=== PATIENT | male | born 1960 | race Caucasian/White ===

== ENCOUNTER 2021-02-23 01:07 | Inpatient (IN) ==
[2021-02-23 01:23] VITALS: BMI 25.6
[2021-02-23] MEDS ORDERED: NS 1,000 ML IV 1,000 ML IV ONE (01:27)
[2021-02-23] MEDS ORDERED: NS 1,000 ML IV 1,000 ML ONE ×2 (01:40→06:03)
--- NOTE | 2021-02-23 01:46 | DR.URIAD ---
HPI Time Seen Time Seen by Provider: 02/23/21 01:45 EST PCP Primary Care Physician: JD OROZCO HPI Comment HPI Comment: Pt says he feels fine and doesn't know why he came and looks at who says she noted confusion after pt returned from work trip to [place] on morning; tested positive for Covid on Wednesday; worsening confusion, cough with sob and fatigue and malaise/myalgia over past two days so she brought him in; he has been coughing since getting home and is required by job to have covid test done; no tx to date; denies cp, palpitations, abd pain, n/v/d; appears off balance at times and has had slurred speech per ; denies proble ms swallowing and wants water he is dm with ef 25% Complaint Chief Complaint:: PT AMBULATORY IN ED AND UNABLE TO ANSWER QUESTIONS. 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 COVID-19 Coronavirus risk:travel/contact w/high risk person: Yes Has patient experienced Coronavirus symptoms: Yes Coronavirus symptoms experienced: Fever, Coughing and Shortness of Breath Source History Provided: Patient and Family Member Mode of Arrival Mode of Arrival: Ambulatory Timing Onset of Chief Complaint: 02/20/21 PMH PMH Past Medical History: Yes Past Medical History: Diabetes and Hypertension Past Medical History Comment: STATES PT HAS 25% HEART FUNCTION Past Surgical History: Yes Surgical History: CABG/Valve Surgery Family History History of Family Medical Conditions: Yes Family Medical History: Cancer, [place] and Hypertension Social History Type of Tobacco Use: None Alcohol Use: None Do you use any recreational Drugs:: No Lives With: Spouse Lives Where: Home Travel Risk Coronavirus risk:travel/contact w/high risk person: Yes Has patient experienced Coronavirus symptoms: Yes Coronavirus symptoms experienced: Fever, Coughing and Shortness of Breath Infectious screening Have you traveled outside the country in the last 6 months?: No Isolation: Droplet ROS Review of Systems Eyes: No Symptoms Reported ENTM: No Symptoms Reported Cardiovascular: No Symptoms Reported Gastrointestinal/Abdominal: No Symptoms Reported Genitourinary: No Symptoms Reported Neurological: No Symptoms Reported Musculoskeletal: No Symptoms Reported Integumentary: No Symptoms Reported Hematologic/Lymphatic: No Symptoms Reported Endocrine: No Symptoms Reported PE Vital Signs Vitals: Temperature 99.4 F Pulse Rate 75 Respiratory Rate 20 Blood Pressure 140/78 O2 Sat by Pulse Oximetry 95 General Limitations: No Limitations General Appearance: Alert and In No Apparent Distress Head Head Exam: Normal Inspection Eyes Eye exam: Normal Appearance ENT ENT Exam: Normal Exam External Ear Exam: Normal External Inspection TM/Canal Exam: Bilateral: Normal Nose Exam: Normal Nose Exam Nasal Speculum Exam: Bilateral: Normal Mouth Exam: Normal Inspection Throat Exam: Normal Inspection Neck Neck Exam: Normal Inspection Chest Chest Inspection: Normal Inspection Respiratory Respiratory Exam: Normal Lung Sounds Bilat Respiratory Exam: Bilateral: Clear to Auscultation Cardiovascular Cardiovascular Exam: Regular Rate and Normal Rhythm Abdominal Exam Abdominal Exam: Normal Inspection, Normal Bowel Sounds and Soft Extremeties Extremities Exam: Normal Inspection Back Back Exam: Normal Inspection Neurologic Neurological Exam: Alert and Other (obvious confusion w/answering questions; reports it's Wednesday morning in 2000, 08/21 UE/LE strength, incoordination finger to nose on lt) Psychiatric Psychiatric Exam: Flat Affect Skin Skin Exam: Warm, Dry, Intact and Normal Color MDM Differential Diagnosis Differential Diagnosis: Pneumonia and URI COURSE Reevaluation 1st: Unchanged 2nd: Unchanged Consultation Call Returned: 05:10 (Dr Miller accepts admission) ROR Labs Reviewed Laboratory Results Reviewed?: Yes Result Diagrams: 02/23/21 01:36 EST 02/23/21 01:36 EST Laboratory: WBC 6.1 X10^3/uL (3.6-10.0) 02/23/21 01:36 EST RBC 5.37 X10^6/uL (4.7-6.0) 02/23/21 01:36 EST Hgb 17.3 g/dL (13.5-18.0) 02/23/21 01:36 EST Hct 49.8 % (42.0-54.0) 02/23/21 01:36 EST MCV 92.9 fL (80.0-100.0) 02/23/21 01:36 EST MCH 32.2 pg (27.0-34.0) 02/23/21 01:36 EST MCHC 34.7 g/dL (33.0-35.0) 02/23/21 01:36 EST RDW 13.1 % (11.6-16.5) 02/23/21 01:36 EST Plt Count 77 X10^3/uL (150.0-450.0) L 02/23/21 01:36 EST MPV 10.3 fL (7.4-11.0) 02/23/21 01:36 EST Neut % (Auto) 69.8 % (42.0-75.0) 02/23/21 01:36 EST Lymph % (Auto) 22.4 % (21.0-51.0) 02/23/21 01:36 EST Sibley % (Auto) 7.1 % (0.0-13.0) 02/23/21 01:36 EST Eos % (Auto) 0.2 % (0.9-2.9) L 02/23/21 01:36 EST Baso % (Auto) 0.5 % (0.2-1.0) 02/23/21 01:36 EST Neut # (Auto) 4.3 x10^3/uL (2.2-4.8) 02/23/21 01:36 EST Lymph # (Auto) 1.4 X10^3/uL (1.3-2.9) 02/23/21 01:36 EST Sibley # (Auto) 0.4 x10^3/uL (0.3-0.8) 02/23/21 01:36 EST Eos # (Auto) 0.0 x10^3/uL (0.0-0.2) 02/23/21 01:36 EST Baso # (Auto) 0.0 X10^3/uL (0.0-0.1) 02/23/21 01:36 EST Absolute Nucleated RBC 0.1 /100WBC 02/23/21 01:36 EST D-Dimer 1.43 ug/ml (0.0-0.57) H* 02/23/21 01:55 EST Sample Site Rrad 02/23/21 01:53 EST ABG pH 7.520 (7.35-7.45) H 02/23/21 01:53 EST ABG pCO2 28.0 mmHg (35.0-45.0) L 02/23/21 01:53 EST ABG pO2 66.0 mmHg (80.0-100.0) L 02/23/21 01:53 EST ABG HCO3 22.9 mmol/L (22-26) 02/23/21 01:53 EST ABG O2 Saturation 95.0 % (90-100) 02/23/21 01:53 EST ABG Base Excess 1.0 mmol/L (-2.0-2.0) 02/23/21 01:53 EST Macho Test Pos 02/23/21 01:53 EST A-a Gradient 49.0 mmHg 02/23/21 01:53 EST FiO2 21.0 02/23/21 01:53 EST Blood Gas Comments Key well-mtf 02/23/21 01:53 EST Sodium 137 mmol/L (136-145) 02/23/21 01:36 EST Corrected Sodium 140 mmol/L (136-145) 02/23/21 01:36 EST Potassium 3.8 mmol/L (3.5-5.1) 02/23/21 01:36 EST Chloride 100 mmol/L (98-107) 02/23/21 01:36 EST Carbon Dioxide 26.8 mmol/L (21-32) 02/23/21 01:36 EST BUN 20 mg/dL (7-18) H 02/23/21 01:36 EST Creatinine 1.26 mg/dL (0.70-1.30) 02/23/21 01:36 EST Est GFR (MDRD) Af Amer > 60 (>60) 02/23/21 01:36 EST Est GFR (MDRD) Non-Af > 60 (>60) 02/23/21 01:36 EST Glucose 221 mg/dL (65-99) H 02/23/21 01:36 EST Lactic Acid 1.5 mmol/L (0.4-2.0) 02/23/21 03:50 Calcium 8.5 mg/dL (8.5-10.1) 02/23/21 01:36 EST Corrected Calcium 9.3 mg/dL (8.5-10.1) 02/23/21 01:36 EST Total Bilirubin 1.70 mg/dL (0.2-1.0) H 02/23/21 01:36 EST AST 50 Units/L (15-37) H 02/23/21 01:36 EST ALT 35 Units/L (12-78) 02/23/21 01:36 EST Alkaline Phosphatase 66 Units/L (46-116) 02/23/21 01:36 EST Creatine Kinase 318 Units/L (39-308) H 02/23/21 01:36 EST CK-MB (CK-2) 2.1 ng/mL (0-4.0) 02/23/21 01:36 EST CK/CKMB % Calc 0.7 % (<4) 02/23/21 01:36 EST Troponin I 0.18 ng/mL (0-1.5) 02/23/21 01:36 EST Total Protein 6.8 g/dL (6.4-8.2) 02/23/21 01:36 EST Albumin 3.0 g/dL (3.4-5.0) L 02/23/21 01:36 EST Globulin 3.8 g/dL (2.5-4.5) 02/23/21 01:36 EST Albumin/Globulin Ratio 0.8 Ratio (1.1-2.1) L 02/23/21 01:36 EST Other Results Comments: no evidence of cva; symptoms most likely d/t encephalopathy; admit, regenCov, oxygen prn and monitor closely XRAY XRAY Interpreted by: Radiologist X-ray Results: cxr: 1. Multifocal alveolar airspace disease is noted throughout the right mid and left lower lung zone. This may represent acute or chronic airspace disease. Follow-up to complete resolution may be obtained as clinically indicated. cta: - The above findings demonstrate COMMON CT imaging features of COVID-19 pneumonia. However, differential diagnosis should include, but is not limited to, influenza pneumonia, organizing pneumonia, or possible drug toxicity. Clinical correlation with laboratory viral testing may be obtained as clinically indicated. Reference: Johnson et al. Radiology. 2020 - Exam is limited due to motion. There is no evidence of a pulmonary embolism from the level of the main pulmonary artery to the vessels located most proximal to the segmental arteries. Distal emboli beyond these points can not be accurately assessed on this examination. Opioid Opioid Risk Tool Age (Emil box if 16-45): No History of Preadolescent Sexual Abuse: No Total: 0 Total Score Risk Category: Low Risk Copyright: Ad PRITCHARD predicting aberrant behaviors Diagnosis Discharge Problem: Community acquired bilateral lower lobe pneumonia, Acute confusion, COVID-19, Elevated d-dimer, Thrombocytopenia, Encephalopathy due to 2019-nCoV Instructions Forms: EUA Consent [facility] Patient Portal Social Distancing
[2021-02-23 01:55] LABS: ABG ALLEN TEST POS; ABG HCO3 22.9 mmol/L (22-26)
[2021-02-23 02:18] LABS: BASOPHILS % (AUTO) 0.5 % (0.2-1.0); EOSINOPHILS % (AUTO) 0.2 % (0.9-2.9); HEMATOCRIT 49.8 % (42.0-54.0); HEMOGLOBIN 17.3 g/dL (13.5-18.0); LYMPHOCYTES # (AUTO) 1.4 X10^3/uL (1.3-2.9); LYMPHOCYTES % (AUTO) 22.4 % (21.0-51.0); MEAN CORPUSCULAR HEMOGLOBIN 32.2 pg (27.0-34.0); MEAN CORPUSCULAR HGB CONC 34.7 g/dL (33.0-35.0); MEAN CORPUSCULAR VOLUME 92.9 fL (80.0-100.0); MEAN PLATELET VOLUME 10.3 fL (7.4-11.0); MONOCYTES # (AUTO) 0.4 x10^3/uL (0.3-0.8); MONOCYTES % (AUTO) 7.1 % (0.0-13.0); NEUTROPHILS # (AUTO) 4.3 x10^3/uL (2.2-4.8); NEUTROPHILS % (AUTO) 69.8 % (42.0-75.0); PLATELET COUNT 77 X10^3/uL (150.0-450.0); RED BLOOD COUNT 5.37 X10^6/uL (4.7-6.0); RED CELL DISTRIBUTION WIDTH 13.1 % (11.6-16.5); WHITE BLOOD COUNT 6.1 X10^3/uL (3.6-10.0)
[2021-02-23 02:27] LABS: ALANINE AMINOTRANSFERASE 35 Units/L (12-78); ALKALINE PHOSPHATASE 66 Units/L (46-116); ASPARTATE AMINO TRANSFERASE 50 Units/L (15-37); BLOOD UREA NITROGEN 20 mg/dL (7-18); CALCIUM 8.5 mg/dL (8.5-10.1); CARBON DIOXIDE 26.8 mmol/L (21-32); CHLORIDE 100 mmol/L (98-107); COR CA(FOR HYPOALB) 9.3 mg/dL (8.5-10.1); COR NA(FOR HYPERGLY) 140 mmol/L (136-145); CREATININE 1.26 mg/dL (0.70-1.30); SODIUM 137 mmol/L (136-145); TOTAL PROTEIN 6.8 g/dL (6.4-8.2); eGFR NON BLACK RACES > 60 (>60)
--- NOTE | 2021-02-23 02:27 | RAD ---
STUDY: FRONTAL VIEW CHESTCOMPARISON: NoneHISTORY: SOBFINDINGS:There is a single lead transvenous pacing wire without evidence of lead wire fractures. Status post midline sternotomyDiffuse multifocal alveolar airspace disease is seen throughout the right lung and left lower lung zone.The heart size is within normal limits.The mediastinum is unremarkable.There is no evidence of pleural effusion or gross pneumothorax.The trachea is midline.IMPRESSION:1. Multifocal alveolar airspace disease is noted throughout the right mid and left lower lung zone. This may represent acute or chronic airspace disease. Follow-up to complete resolution may be obtained as clinically indicated.Electronically signed by: Attila Oswald (Feb 23, 2021 02:25:00)
[2021-02-23] MEDS ORDERED: NS 100 ML IV 100 ML ONE ×2 (02:40→06:03)
[2021-02-23] MEDS ORDERED: ROCEPHIN 1 GRAM IV PREMIX 1 G/50 ML IV.SOLN. IV ONE ×2 (02:43→02:47)
[2021-02-23 02:45] LABS: CKMB % 0.7 % (<4); CREATINE KINASE MB 2.1 ng/mL (0-4.0); TROPONIN I 0.18 ng/mL (0-1.5)
--- NOTE | 2021-02-23 02:54 | CT ---
STUDY: CT HEAD WITHOUT IV CONTRASTCOMPARISON: NoneTECHNIQUE: axial images were acquired of the head without IV contrast. Coronal and sagittal images were provided. All images were reviewed in a variety of windows and levels.LIMITATIONS: Please note that CT has low sensitivity and accuracy for identifying acute infarction. In addition, there are portions of the brain that are affected by beam hardening artifact which further greatly limits identification of an acute infarct.RADIATION REDUCTION TECHNIQUE: Automated exposure control, Adjustment of the mA and/or kV according to patient size, or iterative reconstruction techniques were used.HISTORY: AMS, UNCOORDINATED, COVID-19FINDINGS: There is soft tissue material in the bilateral external ear canals most likely representing cerumen.There is no evidence of an acute intracranial bleed.There is no evidence of a mass or midline shift.There is no evidence of an extra-axial fluid collection.The nelson-white matter differentiation is within normal limits.The visualized bones are unremarkable.The visualized sinuses are clear.The mastoid air cells are well-aerated.IMPRESSION:THERE IS NO EVIDENCE OF AN ACUTE INTRACRANIAL BLEED Electronically signed by: Attila Oswald (Feb 23, 2021 02:50:20)
--- NOTE | 2021-02-23 04:34 | CT ---
STUDY: CTA CHEST WITH IV CONTRASTCOMPARISON: NoneTECHNIQUE: axial images were acquired of the chest with IV contrast for a CT angiogram. Coronal and sagittal images were provided. All images were reviewed in a variety of windows and levels. 3D 8 mm thick MIPS images were provided.RADIATION REDUCTION TECHNIQUE: Automated exposure control, Adjustment of the mA and/or kV according to patient size, or iterative reconstruction techniques were used. 8 mm thick axial MIPS images were provided.HISTORY: sob confusion, elevated d-dimerFINDINGS:CHEST:THYROID GLANDS: The thyroid gland is unremarkable.HEART AND VESSELS: The heart size is enlarged.There is no evidence of pericardial effusion. Thoracic aorta is normal size without evidence of an aneurysm or dissection.Main pulmonary artery size is within normal limits.Exam is limited due to bolus timing. There is no evidence of a pulmonary embolism from the level of the main pulmonary artery to the vessels located most proximal to the segmental arteries. Distal emboli beyond these points can not be accurately assessed on this examination. Transvenous pacing wires are noted.LYMPH NODES: There is no evidence of axillary, mediastinal, or hilar lymphadenopathy.AIRWAY: The trachea and mainstem bronchi are patent.No intraluminal lesions are seen.LUNGS: Diffuse ground-glass opacities are seen throughout the right and left lung involving the subpleural surface and major fissures. No pleural effusion or pneumothorax is seen.ESOPHAGUS: The esophagus is grossly unremarkable.BONES: The visualized bones demonstrate degenerative changes. There are no concerning lytic or blastic lesions identified.UPPER ABDOMINAL STRUCTURES: The visualized upper abdominal structures are unremarkable.IMPRESSSION:- The above findings demonstrate COMMON CT imaging features of COVID-19 pneumonia. However, differential diagnosis should include, but is not limited to, influenza pneumonia, organizing pneumonia, or possible drug toxicity. Clinical correlation with laboratory viral testing may be obtained as clinically indicated. Reference: Alex et al. Radiology. 2020- Exam is limited due to motion. There is no evidence of a pulmonary embolism from the level of the main pulmonary artery to the vessels located most proximal to the segmental arteries. Distal emboli beyond these points can not be accurately assessed on this examination. [email or web address] 04:32:10)
[2021-02-23] MEDS ORDERED: REGEN-COV VIAL 10 ML, DRUG FILTER EXTENSION SET * 1 EA in NS 100 ML IV 100 ML IV ONE ×2 (05:27)
[2021-02-23] MEDS ORDERED: PHARMACY CONSULT - LOVENOX XX SCH (06:00)
[2021-02-23] MEDS ORDERED: REGEN-COV VIAL ONE (06:03)
[2021-02-23] MEDS: NS 1,000 ML IV 1,000 ML IV SCH (06:08)
[2021-02-23] MEDS ORDERED: BROVANA ONE (07:56)
[2021-02-23] MEDS ORDERED: PULMICORT NEB TX 0.5 MG NEB ONE (07:56)
[2021-02-23] MEDS: PULMICORT NEB TX 0.5 MG NEB SCH ×2 (08:30→21:38)
[2021-02-23] MEDS: BROVANA IN SCH ×2 (08:30→21:38)
[2021-02-23] MEDS ORDERED: SOLU-Medrol 125 MG VIAL IVP SCH (09:00)
[2021-02-23] MEDS: PHARMACY CONSULT - IVERMECTIN XX SCH (09:21)
[2021-02-23] MEDS: ASCORBIC ACID INJ MULTI-DOSE VIAL 1,500 MG in NS 100 ML IV 100 ML IV SCH ×3 (09:54→20:14)
[2021-02-23] MEDS: PEPCID TAB 40 MG PO SCH ×2 (09:54→20:13)
[2021-02-23] MEDS: CYTOTEC PO SCH ×4 (09:54→20:13)
[2021-02-23] MEDS: IVERMECTIN PO SCH (09:54)
[2021-02-23] MEDS: FLUVOXAMINE MALEATE PO SCH ×2 (09:55→20:11)
[2021-02-23] MEDS: LIPITOR TAB 80 MG PO SCH (09:55)
[2021-02-23] MEDS: ELIQUIS PO SCH ×2 (09:55→20:12)
[2021-02-23] MEDS: SOLU-Medrol 40 MG VIAL IVP SCH ×3 (09:55→20:14)
[2021-02-23] MEDS: ZINC SULFATE PO SCH ×2 (09:55→20:12)
[2021-02-23] MEDS: PROTONIX INJ 40 MG VIAL IVP SCH ×2 (09:55→20:14)
[2021-02-23] MEDS: THIAMINE HCL INJ IVP SCH ×2 (09:55→20:14)
[2021-02-23] MEDS ORDERED: HumuLIN R ONE (12:40)
[2021-02-23] MEDS: HumuLIN R SUBCUT PRN ×3 (12:49→20:15)
[2021-02-23] MEDS ORDERED: MELATONIN ONE (19:56)
[2021-02-23] MEDS: SNACK - Diabetic Appropriate PO SCH (20:00)
[2021-02-23] MEDS: MELATONIN PO SCH (20:11)
[2021-02-23] MEDS: PERIACTIN TAB 4 MG PO PRN (20:12)
[2021-02-24] MEDS: SOLU-Medrol 40 MG VIAL IVP SCH ×4 (03:15→20:03)
[2021-02-24] MEDS: ASCORBIC ACID INJ MULTI-DOSE VIAL 1,500 MG in NS 100 ML IV 100 ML IV SCH ×4 (03:15→20:03)
[2021-02-24 05:10] LABS: BASOPHILS % (AUTO) 0.1 % (0.2-1.0); HEMATOCRIT 45.8 % (42.0-54.0); HEMOGLOBIN 15.8 g/dL (13.5-18.0); LYMPHOCYTES # (AUTO) 0.8 X10^3/uL (1.3-2.9); LYMPHOCYTES % (AUTO) 15.3 % (21.0-51.0); MEAN CORPUSCULAR HGB CONC 34.5 g/dL (33.0-35.0); MEAN CORPUSCULAR VOLUME 92.8 fL (80.0-100.0); MEAN PLATELET VOLUME 9.9 fL (7.4-11.0); MONOCYTES # (AUTO) 0.2 x10^3/uL (0.3-0.8); MONOCYTES % (AUTO) 4.5 % (0.0-13.0); NEUTROPHILS # (AUTO) 4.2 x10^3/uL (2.2-4.8); NEUTROPHILS % (AUTO) 80.1 % (42.0-75.0); PLATELET COUNT 77 X10^3/uL (150.0-450.0); RED BLOOD COUNT 4.94 X10^6/uL (4.7-6.0); RED CELL DISTRIBUTION WIDTH 12.9 % (11.6-16.5); WHITE BLOOD COUNT 5.3 X10^3/uL (3.6-10.0)
[2021-02-24 05:23] LABS: ALANINE AMINOTRANSFERASE 29 Units/L (12-78); ALBUMIN 2.3 g/dL (3.4-5.0); ALKALINE PHOSPHATASE 57 Units/L (46-116); ASPARTATE AMINO TRANSFERASE 43 Units/L (15-37); BLOOD UREA NITROGEN 24 mg/dL (7-18); CARBON DIOXIDE 22.2 mmol/L (21-32); CHLORIDE 105 mmol/L (98-107); COR CA(FOR HYPOALB) 9.4 mg/dL (8.5-10.1); COR NA(FOR HYPERGLY) 142 mmol/L (136-145); CREATININE 0.94 mg/dL (0.70-1.30); SODIUM 138 mmol/L (136-145); TOTAL PROTEIN 5.9 g/dL (6.4-8.2); eGFR NON BLACK RACES > 60 (>60)
[2021-02-24] MEDS: PHARMACY CONSULT - IVERMECTIN XX SCH (06:05)
[2021-02-24] MEDS: NS 1,000 ML IV 1,000 ML IV SCH (06:05)
[2021-02-24] MEDS: HumuLIN R SUBCUT PRN ×4 (06:06→20:06)
[2021-02-24] MEDS: PULMICORT NEB TX 0.5 MG NEB SCH ×2 (08:05→20:15)
[2021-02-24] MEDS: BROVANA IN SCH ×2 (08:05→20:15)
[2021-02-24] MEDS ORDERED: GLUCOPHAGE ONE ×2 (08:55→19:35)
[2021-02-24] MEDS: ACTOS PO SCH (09:08)
[2021-02-24] MEDS: THIAMINE HCL INJ IVP SCH ×2 (09:10→20:05)
[2021-02-24] MEDS: GLUCOPHAGE PO SCH ×2 (09:10→20:04)
[2021-02-24] MEDS: IVERMECTIN PO SCH (09:10)
[2021-02-24] MEDS: ELIQUIS PO SCH ×2 (09:10→20:04)
[2021-02-24] MEDS: PROTONIX INJ 40 MG VIAL IVP SCH ×2 (09:11→20:04)
[2021-02-24] MEDS: ZINC SULFATE PO SCH ×2 (09:11→20:05)
[2021-02-24] MEDS: LIPITOR TAB 80 MG PO SCH (09:12)
[2021-02-24] MEDS: INVOKANA PO SCH (09:12)
[2021-02-24] MEDS: PEPCID TAB 40 MG PO SCH ×2 (09:12→20:05)
[2021-02-24] MEDS: CYTOTEC PO SCH ×4 (11:55→20:04)
[2021-02-24] MEDS: FLUVOXAMINE MALEATE PO SCH ×2 (11:56→20:04)
[2021-02-24] MEDS: SNACK - Diabetic Appropriate PO SCH (20:00)
[2021-02-24] MEDS: MELATONIN PO SCH (20:05)
[2021-02-24] MEDS: PERIACTIN TAB 4 MG PO PRN (20:05)
[2021-02-25] MEDS: SOLU-Medrol 40 MG VIAL IVP SCH ×3 (03:10→14:53)
[2021-02-25] MEDS: ASCORBIC ACID INJ MULTI-DOSE VIAL 1,500 MG in NS 100 ML IV 100 ML IV SCH ×3 (03:10→14:53)
[2021-02-25 05:24] LABS: BASOPHILS % (AUTO) 0.1 % (0.2-1.0); HEMATOCRIT 44.9 % (42.0-54.0); HEMOGLOBIN 15.5 g/dL (13.5-18.0); LYMPHOCYTES # (AUTO) 0.9 X10^3/uL (1.3-2.9); LYMPHOCYTES % (AUTO) 8.1 % (21.0-51.0); MEAN CORPUSCULAR HEMOGLOBIN 31.9 pg (27.0-34.0); MEAN CORPUSCULAR HGB CONC 34.5 g/dL (33.0-35.0); MEAN CORPUSCULAR VOLUME 92.6 fL (80.0-100.0); MEAN PLATELET VOLUME 10.7 fL (7.4-11.0); MONOCYTES # (AUTO) 0.4 x10^3/uL (0.3-0.8); MONOCYTES % (AUTO) 4.1 % (0.0-13.0); NEUTROPHILS # (AUTO) 9.2 x10^3/uL (2.2-4.8); NEUTROPHILS % (AUTO) 87.7 % (42.0-75.0); PLATELET COUNT 102 X10^3/uL (150.0-450.0); RED BLOOD COUNT 4.85 X10^6/uL (4.7-6.0); RED CELL DISTRIBUTION WIDTH 13.2 % (11.6-16.5); WHITE BLOOD COUNT 10.5 X10^3/uL (3.6-10.0)
[2021-02-25 05:36] LABS: ALANINE AMINOTRANSFERASE 27 Units/L (12-78); ALBUMIN 2.2 g/dL (3.4-5.0); ALKALINE PHOSPHATASE 52 Units/L (46-116); ASPARTATE AMINO TRANSFERASE 37 Units/L (15-37); BLOOD UREA NITROGEN 30 mg/dL (7-18); CALCIUM 7.9 mg/dL (8.5-10.1); CARBON DIOXIDE 21.4 mmol/L (21-32); CHLORIDE 108 mmol/L (98-107); COR CA(FOR HYPOALB) 9.3 mg/dL (8.5-10.1); COR NA(FOR HYPERGLY) 145 mmol/L (136-145); CREATININE 1.24 mg/dL (0.70-1.30); SODIUM 142 mmol/L (136-145); TOTAL PROTEIN 5.6 g/dL (6.4-8.2); eGFR NON BLACK RACES > 60 (>60)
[2021-02-25] MEDS: NS 1,000 ML IV 1,000 ML IV SCH (05:48)
[2021-02-25] MEDS: HumuLIN R SUBCUT PRN ×2 (05:49→14:54)
[2021-02-25] MEDS ORDERED: GLUCOPHAGE ONE (07:36)
[2021-02-25] MEDS ORDERED: VITAMIN D3 125 mcg (5,000 UNITS) PO SCH (09:00)
[2021-02-25] MEDS: CYTOTEC PO SCH ×2 (09:10→13:45)
[2021-02-25] MEDS: BROVANA IN SCH (09:45)
[2021-02-25] MEDS: PULMICORT NEB TX 0.5 MG NEB SCH (09:45)
[2021-02-25] MEDS: GLUCOPHAGE PO SCH (09:48)
[2021-02-25] MEDS: ACTOS PO SCH (09:49)
[2021-02-25] MEDS: ELIQUIS PO SCH (09:49)
[2021-02-25] MEDS: INVOKANA PO SCH (09:50)
[2021-02-25] MEDS: PEPCID TAB 40 MG PO SCH (09:50)
[2021-02-25] MEDS: LIPITOR TAB 80 MG PO SCH (09:50)
[2021-02-25] MEDS: PROTONIX INJ 40 MG VIAL IVP SCH (09:50)
[2021-02-25] MEDS: FLUVOXAMINE MALEATE PO SCH (09:50)
[2021-02-25] MEDS: IVERMECTIN PO SCH (09:50)
[2021-02-25] MEDS: THIAMINE HCL INJ IVP SCH (09:51)
[2021-02-25] MEDS: ZINC SULFATE PO SCH (09:51)
[2021-02-25 13:32] VITALS: BP 130/78
== END 2021-02-25 15:37 | disposition home or self-care (01) | DRG 177 ==
LOC: ER 01:07 → ICU 05:36
PROVIDERS: ADMIT Obstetrics & Gynecology Obstetrics; ATTEND Obstetrics & Gynecology Obstetrics
DX: R94.31 Abnormal electrocardiogram [ECG] [EKG]; Z95.0 Presence of cardiac pacemaker; E11.65 Type 2 diabetes mellitus with hyperglycemia; I10 Essential (primary) hypertension; J12.82 Pneumonia due to coronavirus disease 2019; R79.82 Elevated C-reactive protein (CRP); U07.1 COVID-19; R06.02 Shortness of breath; Z79.01 Long term (current) use of anticoagulants